=== PATIENT | male | born 1975 | race Two or more races ===

== ENCOUNTER 2023-07-07 21:34 | Emergency (ER) | payer SELFPAY ==
[~2023-07-07] VITALS: Ht 177.8 cm; Wt 95.5 kg
[2023-07-07 21:47] VITALS: BP 133/98; PULSE 88; RESP 16; TEMP 98.4
[2023-07-07] MEDS: METHOCARBAMOL 500 MG TABLET PO ONE (23:36)
[2023-07-07] MEDS: KETOROLAC TROMETHAMINE 60 MG/2 ML VIAL IM ONE (23:36)
[2023-07-07] MEDS: PERTUSS(ACELL),DIPH,TET VAC/PF 0.5 ML SYRINGE IM. ONE (23:38)
[2023-07-08] MEDS ORDERED: PERCT PO (00:38)
[2023-07-08] MEDS ORDERED: IBUP-1492 PO (00:40)
== END 2023-07-08 00:52 | disposition home or self-care (01) ==
LOC: EMS 21:36
DX: S22.31XA Fracture of one rib, right side, initial encounter for closed fracture (principal); S16.1XXA Strain of muscle, fascia and tendon at neck level, initial encounter; F12.90 Cannabis use, unspecified, uncomplicated; V89.2XXA Person injured in unspecified motor-vehicle accident, traffic, initial encounter; Y93.89 Activity, other specified; Y92.89 Other specified places as the place of occurrence of the external cause; Y99.8 Other external cause status
CPT/HCPCS: 99285; 70450; 71250; 72125; 90715; 90471; 96372; J1885